=== PATIENT | female | born 1950 | race Caucasian/White ===

== ENCOUNTER 2022-01-16 08:06 | Observation (INO) | payer MEDICARE, OTHER ==
[~2022-01-16] VITALS: Ht 157.5 cm; Wt 97.1 kg
[~2022-01-16 08:06] MED LIST: BAYER81 MG PO; CELEBREX200 MG PO; CITALOPRAM HBR40 MG PO; ESTRADIOL PO; GABAPENTIN300 MG PO; OMEPRAZOLE40 MG PO; PROBIOTIC & AC1 EACH PO; ROPIVACAINE 246.25 MG, EPINEPHRINE HCL 1:1000 1ML 0.5 MG, CLONIDINE HCL 0.08 MG, KETORO... INJ ONE; SPIRONOLACTONE25 MG PO; ULTRAM 50MG50 MG PO; Z CARDIZEM CD PO; Z.0.ALLEGRA180 MG PO; Z.0.CRESTOR10 MG PO; Z.0.HYDROCHLOROTHIA2 PO; Z.0.NAPROXEN500 MG PO; Z.0.NEXIUM40 MG PO; Z.0.PREMARIN0.625 MG PO; Z.1.CENTRUM SILVER1 PO; ZOLPIDEM TARTRAT5 MG PO; [UNRECOGNIZED DRUG - OTHER] PO
[2022-01-16] MEDS ORDERED: DEXAMETHASONE SOD PHOS 10 MG/1 ML VIAL ONE (08:20)
[2022-01-16] MEDS ORDERED: GABAPENTIN 300 MG CAP ONE (08:20)
[2022-01-16] MEDS ORDERED: CELECOXIB 200 MG CAP ONE (08:20)
[2022-01-16] MEDS ORDERED: Vancomycin IV 1,000 MG ONE (10:06)
[2022-01-16] MEDS ORDERED: SODIUM CHLORIDE 0.9% 500ML 500 ML ONE (10:07)
[2022-01-16] MEDS ORDERED: TRANEXAMIC ACID 10 ML ONE ×2 (10:07)
[2022-01-16] MEDS ORDERED: HYDROCODONE/APAP 5MG-325MG TAB PO PRN (12:00)
[2022-01-16] MEDS ORDERED: ONDANSETRON HCL INJ 2MG/ML 2ML 2 MG/ML VIAL IV PRN (12:00)
[2022-01-16] MEDS ORDERED: DIPHENHYDRAMINE HCL INJ 50 MG/ML VIAL IV PRN (12:00)
[2022-01-16] MEDS ORDERED: DOCUSATE SODIUM 100 MG CAP PO PRN (12:00)
[2022-01-16] MEDS ORDERED: ACETAMINOPHEN 650 MG SUPP PR PRN (12:00)
[2022-01-16] MEDS ORDERED: POVIDONE IODINE 0.05% 0.05 % ML PO ONE (12:04)
[2022-01-16] MEDS ORDERED: SEVOFLURANE INHAL SOLN 250 ML PEN BTL ONE (12:04)
[2022-01-16] MEDS ORDERED: ONDANSETRON HCL INJ 2MG/ML 2ML 2 MG/ML VIAL ONE (12:04)
[2022-01-16] MEDS ORDERED: LIDOCAINE HCL 2% LOCAL INJ 5 ML SDV VIAL INJ ONE (12:04)
[2022-01-16] MEDS ORDERED: EPHEDRINE SULFATE INJ 50 MG/ML VIAL ONE (12:04)
[2022-01-16] MEDS ORDERED: PROPOFOL IV EMULSION 10 MG/ML 20 ML VIAL ONE (12:04)
[2022-01-16] MEDS ORDERED: MIDAZOLAM HCL 2 MG/2 ML VIAL ONE (12:17)
[2022-01-16] MEDS ORDERED: FENTANYL CITRATE/PF 100MCG/2 ML INJ ONE ×2 (12:17→12:27)
[2022-01-16] MEDS ORDERED: HYDROMORPHONE 2MG/ML 2 MG/ML ML ONE (12:37)
[2022-01-16] MEDS: KETOROLAC TROMETHAMINE 30 MG/ML VIAL IV PRN (12:39)
[2022-01-16] MEDS ORDERED: ACETAMINOPHEN 1000 MG/100 ML 100 ML IV ONE (12:39)
[2022-01-16 13:04] VITALS: BP 124/62
[2022-01-16] MEDS: SODIUM CHLORIDE 0.9% 1000ML 1,000 ML IV SCH (13:30)
[2022-01-16] MEDS: HYDROCODONE/APAP 7.5MG-325MG 1 EA TAB PO PRN ×2 (13:59→22:00)
[2022-01-16 14:44] VITALS: BP 124/62
[2022-01-16 15:55] VITALS: BP 113/52
[2022-01-16] MEDS: CELECOXIB 200 MG CAP PO SCH (16:58)
[2022-01-16] MEDS ORDERED: ACETAMINOPHEN 325 MG TAB PO PRN (17:00)
[2022-01-16 20:13] VITALS: BP 106/56
[2022-01-16 21:00] VITALS: BP 106/56
[2022-01-16] MEDS ORDERED: ZOLPIDEM TARTRATE 5 MG TAB PO PRN (21:00)
[2022-01-17 00:03] VITALS: BP 107/53
[2022-01-17] MEDS: SODIUM CHLORIDE 0.9% 1000ML 1,000 ML IV SCH (01:52)
[2022-01-17] MEDS: HYDROCODONE/APAP 7.5MG-325MG 1 EA TAB PO PRN ×2 (02:15→13:04)
[2022-01-17] MEDS: KETOROLAC TROMETHAMINE 30 MG/ML VIAL IV PRN (05:00)
[2022-01-17 05:13] VITALS: BP 109/62
[2022-01-17 05:19] LABS: HEMATOCRIT 30.8 % (34.2-44.1)
[2022-01-17 07:10] VITALS: BP 107/64
[2022-01-17 08:37] VITALS: BP 107/64
[2022-01-17] MEDS ORDERED: GABAPENTIN 300 MG CAP PO SCH (09:00)
[2022-01-17] MEDS: CELECOXIB 200 MG CAP PO SCH (09:00)
[2022-01-17] MEDS ORDERED: CITALOPRAM HYDROBROMIDE 20 MG TAB PO SCH (09:00)
[2022-01-17] MEDS ORDERED: PANTOPRAZOLE SOD 40 MG TABEC PO SCH (09:00)
[2022-01-17] MEDS ORDERED: ONDANSETRON HCL 4 MG ORAL DISINTEGRATING TAB PO PRN (10:30)
[2022-01-17 11:00] VITALS: BP 93/52
[2022-01-17] MEDS ORDERED: ACETAMINOPHEN 1000 MG/100 ML IV PRN (12:00)
[2022-01-17] MEDS ORDERED: CRESTOR 10MG PO SCH (21:00)
== END 2022-01-17 13:07 | disposition home or self-care (01) ==
LOC: OR 08:06 → PACU V 12:00 → MED/SURG 13:17
PROVIDERS: ADMIT Specialist; ATTEND Specialist
DX: M16.11 Unilateral primary osteoarthritis, right hip (principal); Z68.41 Body mass index [BMI] 40.0-44.9, adult; E66.01 Morbid (severe) obesity due to excess calories; I10 Essential (primary) hypertension; E78.5 Hyperlipidemia, unspecified; K21.9 Gastro-esophageal reflux disease without esophagitis; F41.9 Anxiety disorder, unspecified; Z88.8 Allergy status to other drugs, medicaments and biological substances; Z20.822 Contact with and (suspected) exposure to COVID-19; Z01.812 Encounter for preprocedural laboratory examination; Z01.818 Encounter for other preprocedural examination
CPT/HCPCS: 27130; 36415; 71046; 72170; 85014; 85018; 86850; 86900; 86920; 94799; 97116 ×2; 97162; 97530 ×2; C1713 ×3; C1776 ×2; G0378 ×2; J0131; J0171; J0690 ×2; J1100; J1170; J1885 ×2; J2001; J2250; J2405; J2704; J2795; J3010; J3370; J7030; J7040; S0164; U0002

== ENCOUNTER → 2022-05-23 | Day surgery (SDC) | payer MEDICARE, OTHER ==
[2022-05-19 10:36] LABS: BASOPHILS % 0.5 % (0.0-1.0); EOSINOPHILS # (AUTO) 0.3 (0.0-0.4); EOSINOPHILS % 4.3 % (0.0-6.0); HEMATOCRIT 39.6 % (34.2-44.1); HEMOGLOBIN 12.3 g/dL (12.0-16.0); LYMPHOCYTES # (AUTO) 1.4 (1.0-3.2); LYMPHOCYTES % 23.7 % (18.0-39.1); MEAN CORPUSCULAR HEMOGLOBIN 28.7 pg (28-32); MEAN CORPUSCULAR HGB CONC 31.1 g/dL (31-35); MEAN CORPUSCULAR VOLUME 92.3 fL (81-99); MONOCYTES # (AUTO) 0.7 (0.2-0.8); MONOCYTES % 12.3 % (4.4-11.3); NEUTROPHILS # (AUTO) 3.4 (2.1-6.9); PLATELET COUNT 281 x10e3/uL (140-360); RED BLOOD COUNT 4.29 x10e6/uL (3.6-5.1); RED CELL DISTRIBUTION WIDTH 14.4 % (11.7-14.4)
[~2022-05-23] MED LIST changes: +FENTANYL CITRATE/PF 100MCG/2 ML INJ ONE; +METHOCARBAMOL PO; +MIDAZOLAM HCL 2 MG/2 ML VIAL ONE; +POVIDONE IODINE 0.05% 0.05 % ML PO ONE; +PROPOFOL IV EMULSION 10 MG/ML 20 ML VIAL ONE; -ROPIVACAINE 246.25 MG, EPINEPHRINE HCL 1:1000 1ML 0.5 MG, CLONIDINE HCL 0.08 MG, KETORO... INJ ONE
[2022-05-23 13:26] VITALS: BP 114/58
== END | disposition home or self-care (01) ==
LOC: OR 07:55
PROVIDERS: ATTEND Specialist
DX: T84.84XA Pain due to internal orthopedic prosthetic devices, implants and grafts, initial encounter (principal); T84.091A Other mechanical complication of internal left hip prosthesis, initial encounter; I10 Essential (primary) hypertension; K21.9 Gastro-esophageal reflux disease without esophagitis; Y83.8 Other surgical procedures as the cause of abnormal reaction of the patient, or of later complication, without mention of misadventure at the time of the procedure; Z88.8 Allergy status to other drugs, medicaments and biological substances; Z01.810 Encounter for preprocedural cardiovascular examination; Z01.812 Encounter for preprocedural laboratory examination; Z79.82 Long term (current) use of aspirin; Z79.899 Other long term (current) drug therapy; Z68.39 Body mass index [BMI] 39.0-39.9, adult
CPT/HCPCS: 20610; 36415; 77002; 85025; 87071; 87075; 87205; 93005; J2250; J2704; J3010; 76000